=== PATIENT | female | born 1940 | race Caucasian/White ===

== ENCOUNTER → 2016-10-13 | Outpatient (CLI) | payer BC ==
[~2016-10-13] MED LIST: EFF50 PO; OXYC-57 PO; [UNRECOGNIZED DRUG - OTHER]
== END | disposition home or self-care (01) ==
LOC: C.LABSPEC 18:00
PROVIDERS: ATTEND Internal Medicine
DX: R39.15 Urgency of urination (principal)

== ENCOUNTER → 2016-10-17 | Outpatient (CLI) | payer BC ==
--- NOTE | 2016-10-17 12:00 | DIAGNOSTIC IMAGING REPORT ---
ULTRASOUND KIDNEYS AND BLADDER CLINICAL HISTORY: Hematuria. COMPARISON STUDY: No priors. TECHNIQUE: Real-time, grayscale, and color flow sonography of the kidneys and bladder is performed. Images are reviewed in the transverse and longitudinal planes. FINDINGS: Kidneys: There is slightly asymmetric cortical atrophy of the left kidney as compared to the right. The right kidney measures 10.8 x 4.2 x 5.4 cm and the left kidney measures 11.4 x 6.3 x 4.6 cm. There is no hydronephrosis. No shadowing renal calculi are identified. There are 2 left renal cysts identified measuring up to 6.3 cm. There is no sonographic evidence of solid mass lesion. No perinephric fluid is identified. Bladder: The partially decompressed bladder is grossly normal in appearance. Bilateral ureteral jets were seen. Abdomen: Survey images of the liver show evidence of hepatic steatosis. IMPRESSION: 1. The kidneys demonstrate cortical atrophy and are without hydronephrosis. 2. There are 2 left-sided renal cyst identified. 3. The bladder was normal as visualized. 4. Findings suggest hepatic steatosis. Electronically signed by: Ash Nam M.D. 10/17/2016 11:59 AM Dictated Date/Time: 10/17/2016 11:56 AM
== END | disposition home or self-care (01) ==
LOC: C.ULTRBC 10:11
PROVIDERS: ATTEND Internal Medicine
DX: R31.9 Hematuria, unspecified (principal); N28.1 Cyst of kidney, acquired

== ENCOUNTER → 2016-11-10 | Outpatient (CLI) | payer BC ==
[2016-11-10 17:17] LABS: URINE APPEARANCE CLEAR (CLEAR); URINE BILIRUBIN NEG (NEG); URINE COLOR YELLOW; URINE EPITHELIAL CELL AUTO >30 /lpf (0-5); URINE NITRITE NEG (NEG); URINE SPECIFIC GRAVITY 1.023 (1.000-1.030); UROBILINOGEN NEG (NEG); ZZUR CULT IF INDIC CLEAN CATCH NO
[2016-11-10 17:38] LABS: MANUAL MICROSCOPIC REQUIRED? NO; REVIEW REQ? NO
== END | disposition home or self-care (01) ==
LOC: C.LABBC 13:59
PROVIDERS: ATTEND Internal Medicine
DX: R39.15 Urgency of urination (principal); R31.9 Hematuria, unspecified

== ENCOUNTER → 2016-11-25 | Outpatient (CLI) | payer BC ==
[2016-11-25 18:20] LABS: BLOOD UREA NITROGEN 21 mg/dl (7-18); BUN/CREATININE RATIO 24.6 (10-20); CREATININE 0.87 mg/dl (0.60-1.20)
== END | disposition home or self-care (01) ==
LOC: C.LABBC 14:45
PROVIDERS: ATTEND Nurse Practitioner Family
DX: R31.9 Hematuria, unspecified (principal)

== ENCOUNTER → 2016-12-04 | Outpatient (CLI) | payer BC ==
[~2016-12-04] MED LIST changes: +OPTIRAY 320 IV PRN
--- NOTE | 2016-12-05 07:40 | DIAGNOSTIC IMAGING REPORT ---
CT OF THE ABDOMEN AND PELVIS WITH AND WITHOUT CONTRAST HEMATURIA PROTOCOL CLINICAL HISTORY: Hematuria. COMPARISON STUDY: Renal ultrasound October 17, 2016. TECHNIQUE: Unenhanced and split bolus phase imaging of the abdomen and pelvis was performed. Injection of 119 cc Optiray [address] DOSE: 1877.18 mGycm FINDINGS: No renal, ureteral or bladder calculi are present. There is no hydronephrosis or hydroureter. A 5 cm left-sided cyst is noted within the upper aspect of the renal pelvis. Note is made of a 3.1 cm cystic lesion arising from the lower pole of the left kidney. This lesion is almost entirely cystic however contains a 1.6 x 0.6 cm hyperdense component at the periphery of the anterior aspect of this lesion which demonstrates enhancement on the postcontrast images. The attenuation on the unenhanced portion of this exam is approximately 50 Hounsfield units and the attenuation on the postcontrast images is approximately 80 Hounsfield units. No urothelial lesions are identified within the upper tract. There is mild wall thickening of the bladder with minimal infiltration. There is left colon diverticulosis without evidence for acute diverticulitis. Submucosal fat deposition of the terminal ileum and portions of the colon is chronic. There are no enlarged lymph nodes. There are no suspicious osseous lesions. IMPRESSION: 1. No urinary calculi or hydronephrosis. No upper tract urothelial lesions. 2. Complex cystic 3.1 cm lesion arising from the lower pole of the left kidney. This lesion is almost entirely cystic but has a peripheral hyperdense mildly enhancing component worrisome for a cystic neoplasm. This is considered a Bosniak 3 lesion. 3. Mild wall thickening of the bladder with minimal adjacent infiltration which could be correlated with urinalysis to exclude cystitis. Electronically signed by: Dino Cardozo M.D. 12/05/2016 7:37 AM Dictated Date/Time: 12/04/2016 12:37 PM
== END | disposition home or self-care (01) ==
LOC: C.CTS 10:10
PROVIDERS: ATTEND Nurse Practitioner Family
DX: R31.9 Hematuria, unspecified (principal); N28.1 Cyst of kidney, acquired

== ENCOUNTER → 2017-03-10 | Outpatient (CLI) | payer BC ==
[~2017-03-10] MED LIST changes: -OPTIRAY 320 IV PRN
--- NOTE | 2017-03-16 11:19 | Sleep Study ---
Sleep Study Report Date of Service: March 10, 2017 Sleep Study Report Clinical data: The patient is a 76-year-old female with a BMI of 33.2 with symptoms of fatigue and snoring referred for a sleep study. On the evening of March 10, 2017, a home sleep apnea test was performed using a [employer] type 3 monitor. Recording results: Total recording time was 10 hours. Patient monitoring time and estimated sleep time was 7.3 hours. Respiratory data: Mild sleep apnea was documented. The YARELIS was 8. Nine obstructive apneic episodes were recorded. Forty-nine hypopneas were recorded. The longest respiratory event was 52 seconds. Oximetry data: Mild nocturnal hypoxemia was seen. Oxygen heidi was 86 percent. Mean saturation was 91 percent. Time below 89 percent was 11 minutes. Heart rate data: Heart rates ranged from 48 to 52 beats per minute. Snoring data: Snoring was recorded throughout the night. Art Coordinator's comments: Snoring was present throughout the test. Hypopneas and apneas were seen. Saturations were borderline for most of the night. Impression: Mild sleep apnea/hypopnea with an YARELIS of 8 with mild nocturnal hypoxemia. The majority of the patient's events occurred while supine. Recommendation: The patient may benefit from weight loss, use of an oral appliance, positional therapy, or a repeat sleep study with CPAP. Sleep medicine consultation may be of benefit. Clinical correlation is needed. Copies To 1: Lyle Chun M.D.
== END | disposition home or self-care (01) ==
LOC: C.NEUR 14:50
PROVIDERS: ATTEND Internal Medicine
DX: G47.30 Sleep apnea, unspecified (principal); E66.3 Overweight

== ENCOUNTER → 2017-03-17 | Outpatient (CLI) | payer BC ==
[2017-03-17 14:23] LABS: BASO % 0.5 %; BASO ABS # 0.03 K/uL (0-0.2); COMPLETE YES; EOS % 1.8 %; HEMATOCRIT 44.5 % (37-47); IG% 0.4 %; LYMPH % 33.1 %; LYMPH ABS # 1.82 K/uL (1.2-3.4); MEAN CELL VOLUME 84.6 fL (80-100); MEAN CORPUSCULAR HEMOGLOBIN 27.9 pg (25-34); MEAN PLATELET VOLUME 9.8 fL (7.4-10.4); MONO % 8.4 %; NEUT % 55.8 %; PLATELET COUNT 277 K/uL (130-400); RED BLOOD COUNT 5.26 M/uL (4.2-5.4)
[2017-03-17 14:34] LABS: BLOOD UREA NITROGEN 14 mg/dl (7-18); BUN/CREATININE RATIO 15.1 (10-20); CALCIUM 9.2 mg/dl (8.5-10.1); CARBON DIOXIDE 25 mmol/L (21-32); CHLORIDE 110 mmol/L (98-107); CHOLESTEROL 210 mg/dl (0-200); CREATININE 0.92 mg/dl (0.60-1.20); GLUCOSE 112 mg/dl (70-99); POTASSIUM 3.6 mmol/L (3.5-5.1); SODIUM 142 mmol/L (136-145); TRIGLYCERIDES 92 mg/dl (0-150); VERY LOW DENSITY LIPOPROT CALC 18 mg/dl
[2017-03-17 14:39] LABS: CHOLESTEROL/HDL RATIO 3.4; HDL CHOLESTEROL 62 mg/dl; LDL CHOLESTEROL CALCULATED 130 mg/dl
== END | disposition home or self-care (01) ==
LOC: C.LABBC 10:27
PROVIDERS: ATTEND Urology
DX: E55.9 Vitamin D deficiency, unspecified (principal); I10 Essential (primary) hypertension

== ENCOUNTER → 2017-03-31 | Outpatient (CLI) | payer BC ==
[~2017-03-31] MED LIST changes: +GADAVIST IV PRN
--- NOTE | 2017-03-31 10:02 | DIAGNOSTIC IMAGING REPORT ---
ABDOMINAL MRI WITH AND WITHOUT INTRAVENOUS CONTRAST HISTORY: Follow-up COMPLEX RENAL CYST TECHNIQUE: Multiplanar multisequence MRI of the abdomen was performed both before and after the intravenous administration of contrast COMPARISON STUDY: Abdomen and pelvis CT 12/04/2016. FINDINGS: There is again noted a 3.1 cm primarily cystic lesion within the lower pole the left kidney. There is again noted a tiny nodular area along the anterior aspect of this lesion. This is difficult to characterize due to small size but appears to demonstrate enhancement best seen on axial image 48 of 68. This area of nodular enhancement measures approximately 4 mm in thickness and appears to be T2 hypointense.. There is also 4.8 x 3.1 cm T2 hyperintense, T1 hypointense nonenhancing lesion within the upper pole of the left kidney. This is consistent with a cyst. There is also persistent 2.2 x 1.1 cm lobular area of enhancement within the right renal pelvis best seen on coronal postcontrast image 72 of 140. This appears to be intraluminal and is concerning for a urothelial lesion. The liver, spleen, adrenal glands, pancreas, gallbladder are unremarkable. No retroperitoneal lymphadenopathy. The visualized loops of bowel are unremarkable. Normal caliber abdominal aorta. IMPRESSION: 1. Confirmation of the 3.1 cm lesion within the lower pole of the left kidney which contains a tiny nodular enhancement anteriorly. Therefore, this is consistent with a Bosniak 3 lesion and is worrisome for a cystic neoplasm. 2. There is also suggestion of a 2.2 x 1.1 cm lobular area of enhancement within the right renal pelvis. There was no abnormality at this location seen on the 12/04/2016 CT study. However, repeat CT urogram is recommended to exclude a urothelial lesion. Electronically signed by: Khanh Fonseca M.D. 03/31/2017 10:00 AM Dictated Date/Time: 03/31/2017 9:38 AM
== END | disposition home or self-care (01) ==
LOC: C.MRIBC 08:38
PROVIDERS: ATTEND Urology
DX: N28.1 Cyst of kidney, acquired (principal)

== ENCOUNTER → 2017-07-13 | Outpatient (CLI) | payer BC ==
[~2017-07-13] MED LIST changes: -GADAVIST IV PRN
== END | disposition home or self-care (01) ==
LOC: C.LABBC 10:40
PROVIDERS: ATTEND Nurse Practitioner Adult Health
DX: R39.15 Urgency of urination (principal)

== ENCOUNTER → 2017-09-29 | Outpatient (CLI) | payer BC ==
[2017-09-29 17:29] LABS: BLOOD UREA NITROGEN 18 mg/dl (7-18); CREATININE 0.92 mg/dl (0.60-1.20)
== END | disposition home or self-care (01) ==
LOC: C.LABBC 15:33
PROVIDERS: ATTEND Urology
DX: R39.15 Urgency of urination (principal)

== ENCOUNTER → 2017-10-05 | Outpatient (CLI) | payer BC ==
[~2017-10-05] MED LIST changes: +OPTIRAY 320 IV PRN
--- NOTE | 2017-10-05 10:56 | DIAGNOSTIC IMAGING REPORT ---
CT SCAN OF THE ABDOMEN AND PELVIS COMBO RENAL MASS PROTOCOL CLINICAL HISTORY: Complex renal cyst. COMPARISON STUDY: Abdominal CT dated 12/04/2016. Abdominal MRI dated 03/31/2017. TECHNIQUE: Before and following the IV administration of 120 cc of Optiray 320, CT scan of the abdomen and pelvis is performed from the lung bases to the proximal femora using the renal mass protocol. Images are reviewed in the axial, sagittal, and coronal planes. IV contrast was administered without complication. A dose lowering technique was utilized adhering to the principles of ALARA. CT DOSE: 2383.32 mGycm FINDINGS: Lung bases: The heart is top normal in size and without pericardial effusion. There are coronary artery calcifications. A 4 mm left lower lobe pulmonary nodule seen on image #46 is unchanged. The lung bases are otherwise clear noting dependent atelectasis. There is a tiny hiatal hernia. Liver: The contrast-enhanced liver is normal in size, contour, and attenuation. There is no intrahepatic biliary ductal dilatation. The hepatic veins and portal veins are patent. Gallbladder: Unremarkable. Spleen: Normal in size and attenuation. Pancreas: Unremarkable. Adrenal glands: Unremarkable. Kidneys: No renal calculi are identified on the unenhanced series. The contrast enhanced kidneys demonstrate cortical atrophy and are without hydronephrosis. An extrarenal pelvis is incidentally noted on the right. The kidneys enhance and excrete symmetrically. A 5 cm parapelvic cyst is again noted in the right upper pole. Smaller right-sided parapelvic cysts are suggested. There is unchanged appearance of a 3.1 cm exophytic cyst arising from lower pole of the left kidney. There is a thin rim of enhancing soft tissue seen on anterior/superior margin which measures up to 1.3 cm. This appears contiguous with the adjacent renal parenchyma on the axial images and may represent a small tongue of normal renal parenchyma versus a true enhancing nodular component of the lesion. No additional enhancing cortical mass is appreciated. There is no evidence of urothelial lesion involving the renal pelvis bilaterally or along the course of the ureters. The majority of the left ureter is not well opacified by excreted contrast. Abdominal vasculature: The abdominal aorta is normal in course and caliber noting moderate atherosclerotic calcification. Bowel: There is moderate colonic diverticulosis without CT evidence of acute diverticulitis. No bowel obstruction is identified. The appendix is normal as visualized. Peritoneum: There is no intraperitoneal free air or abdominal ascites. Lymphadenopathy: None. Pelvic viscera: The bladder is decompressed and grossly unremarkable. The uterus is surgically absent. No adnexal lesion is seen. Skeletal structures: The skeletal structures are osteopenic. There is mild lumbosacral spondylosis. Sclerotic change is noted at the pubic symphysis. No lytic or blastic lesions are seen. IMPRESSION: 1. There is unchanged appearance of a 3.1 cm exophytic cystic lesion arising from the lower pole of the left kidney. Again seen is a thin component of enhancing soft tissue along the anterior/superior margin which appears contiguous with the adjacent renal parenchyma on the axial images. This could represent a thin tongue of normal renal parenchyma versus an enhancing nodular component of the lesion/cystic neoplasm. Continued follow-up is recommended. 2. No additional findings are concerning for enhancing renal mass. 3. Moderate colonic diverticulosis without CT evidence of acute diverticulitis. 4. Additional findings as above. Electronically signed by: Ash Nam M.D. 10/05/2017 10:55 AM Dictated Date/Time: 10/05/2017 10:40 AM
== END | disposition home or self-care (01) ==
LOC: C.CTS 10:04
PROVIDERS: ATTEND Urology
DX: N28.1 Cyst of kidney, acquired (principal); K57.30 Diverticulosis of large intestine without perforation or abscess without bleeding

== ENCOUNTER → 2017-12-18 | Outpatient (CLI) | payer BC ==
[~2017-12-18] MED LIST changes: -OPTIRAY 320 IV PRN
--- NOTE | 2017-12-21 08:08 | MAMMOGRAPHY REPORT ---
BILATERAL DIGITAL SCREENING MAMMOGRAM TOMOSYNTHESIS WITH CAD: 12/18/2017 CLINICAL HISTORY: Routine screening. Patient has no complaints. TECHNIQUE: Breast tomosynthesis in addition to standard 2D mammography was performed. Current study was also evaluated with a Computer Aided Detection (CAD) system. COMPARISON: Comparison is made to exams dated: 10/01/2015 mammogram, 08/21/2014 mammogram, 05/04/2013 ma mmogram, 04/16/2012 mammogram, 02/13/2011 mammogram - [facility], and 06/27/2008. BREAST COMPOSITION: The tissue of both breasts is heterogeneously dense, which may obscure small mas ses. FINDINGS: No suspicious masses, calcifications, or areas of architectural distortion are noted in ei ther breast. There has been no significant interval change compared to prior exams. IMPRESSION: ACR BI-RADS CATEGORY 1: NEGATIVE There is no mammographic evidence of malignancy. A 1 year screening mammogram is recommended. The pa tient will receive written notification of the results. Approximately 10% of breast cancers are not detected with mammography. A negative mammographic report should not delay biopsy if a clinically suggestive mass is present. Aruna Moreno M.D. ah/:12/18/2017 15:00:11 Senior Shipping Clerk: Maris ESPARZA(Jake)(Donny)([place]), [facility] letter sent: Normal 1/2 BI-RADS Code: ACR BI-RADS Category 1: Negative
== END | disposition home or self-care (01) ==
LOC: C.MAMM 14:17
PROVIDERS: ATTEND Internal Medicine
DX: Z12.31 Encounter for screening mammogram for malignant neoplasm of breast (principal)